=== PATIENT | female | born 1960 ===

== ENCOUNTER 2017-02-21 11:01 | Emergency (ER) | payer MEDICAID, OTHER ==
[2017-02-21 11:05] VITALS: BP 125/77; PULSE 66; RESP 18; TEMP 98.4
[2017-02-21 11:12] VITALS: O2SAT 98
--- NOTE | 2017-02-21 11:29 | ED PDOC ---
Upper Extremity Pain/Injury Time Seen by Provider: 02/21/17 11:17 Chief Complaint (Nursing): Upper Extremity Problem/Injury Chief Complaint (Provider): Right wrist fracture - Pain History Per: Patient History/Exam Limitations: no limitations Onset/Duration Of Symptoms: Days Current Symptoms Are (Timing): Still Present Quality: Dull Severity: Moderate Pain Scale Rating Of: 6 Additional Complaint(s): Pt states she was splinted and told the splint is only for 1 week. Pt states she has orthopedic appointment on the and was concerned that was too long for the splint. Orthopedics aware of fracture. PT also states that percocet does not seem to help the pain much. No numbness/tingling. Pt states the pain is overall improved. Pt also asks about the the ankle of her wrist is splint which is appropriate. Past Medical History Reviewed: Historical Data, Nursing Documentation, Vital Signs Vital Signs: Last Vital Signs Temp 98.4 F 02/21/17 11:05 Pulse 66 02/21/17 11:05 Resp 18 02/21/17 11:05 BP 125/77 02/21/17 11:05 Pulse Ox 98 02/21/17 11:10 - Medical History PMH: Fractures, Hypothyroidism - Surgical History Surgical History: No Surg Hx - Family History Family History: States: Unknown Family Hx - Living Arrangements Living Arrangements: With Family - Social History Current smoker - smoking cessation education provided: No Alcohol: None Drugs: Denies - Immunization History Hx Influenza Vaccination: No Hx Pneumococcal Vaccination: No - Home Medications Home Medications: Ambulatory Orders Medication Instructions Recorded Levothyroxine [Synthroid] 100 mcg PO DAILY 07/01/15 metFORMIN [glucOPHAGE] 850 mg PO DAILY 02/18/17 Ibuprofen [Motrin] 600 mg PO Q6H #30 tab 02/19/17 oxyCODONE/Acetaminophen [Percocet 1 tab PO QID PRN #10 tab 02/19/17 5/325 mg Tab] Naproxen [Naprosyn] 500 mg PO BID #30 tablet 02/21/17 - Allergies Allergies/Adverse Reactions: Allergies Allergy/AdvReac Type Severity Reaction Status Date / Time No Known Allergies Allergy Verified 02/21/17 11:10 Review of Systems ROS Statement: Except As Marked, All Systems Reviewed And Found Negative Constitutional: Negative for: Fever, Chills Musculoskeletal: Positive for: Other Neurological: Negative for: Weakness, Numbness Physical Exam - Reviewed Nursing Documentation Reviewed: Yes Vital Signs Reviewed: Yes - Physical Exam Appears: Positive for: Well, Non-toxic, No Acute Distress Head Exam: Positive for: ATRAUMATIC, NORMAL INSPECTION, NORMOCEPHALIC Skin: Positive for: Warm. Negative for: Normal Color (Some ecchymosis of the 4/ 5 digits, sensation of finger intact) Eye Exam: Positive for: Normal appearance ENT: Positive for: Normal ENT Inspection Neck: Positive for: Normal, Painless ROM Respiratory: Negative for: Accessory Muscle Use, Respiratory Distress Back: Positive for: Normal Inspection Extremity: Positive for: Normal ROM Neurologic/Psych: Positive for: Alert, Oriented - ECG O2 Sat by Pulse Oximetry: 98 Pulse Ox Interpretation: Normal Disposition - Clinical Impression Clinical Impression: Wrist fracture, right - Patient ED Disposition Is Patient to be Admitted: No Counseled Patient/Family Regarding: Diagnosis, Need For Followup, Rx Given - Disposition Referrals: Brigid Julien MD [Staff Provider] - Disposition: Routine/Home Disposition Time: 11:33 Condition: GOOD Prescriptions: Naproxen [Naprosyn] 500 mg PO BID #30 tablet Instructions: Wrist Fracture in Adults (ED)
== END 2017-02-21 11:45 | disposition home or self-care (01) ==
LOC: H.ER 11:01
DX: Z47.89 Encounter for other orthopedic aftercare (principal)

== ENCOUNTER 2017-02-26 10:51 | Emergency (ER) | payer MEDICAID ==
[2017-02-26 11:19] VITALS: BP 127/72; PULSE 70; RESP 16; TEMP 97; O2SAT 98
--- NOTE | 2017-02-26 12:18 | ED PDOC ---
Lower Extremity Pain/Injury Time Seen by Provider: 02/26/17 11:27 Chief Complaint (Nursing): Lower Extremity Problem/Injury Chief Complaint (Provider): Left knee pain History Per: Patient History/Exam Limitations: no limitations Onset/Duration Of Symptoms: Other (1 week) Additional Complaint(s): Patient is a 56 y/o female with no significant past medical history presenting to the emergency department for left knee pain x 1 week. States that a week ago , she fell and injured her right arm and left knee. For this complaint, she visited [facility] at the time of injury, reporting that they performed an x-ray of her forearm, which revealed a fracture. A splint was placed and a referral for an orthopedist was given. However, no radiological studies were done on her left knee despite the injury. Denies other injuries or other complaints. PCP: none provided. Past Medical History Reviewed: Historical Data, Nursing Documentation, Vital Signs Vital Signs: Last Vital Signs Temp 97 F L 02/26/17 11:15 Pulse 70 02/26/17 11:15 Resp 16 02/26/17 11:15 BP 127/72 02/26/17 11:15 Pulse Ox 98 02/26/17 11:15 - Medical History PMH: Fractures, Hypothyroidism - Family History Family History: States: Unknown Family Hx - Immunization History Hx Influenza Vaccination: No Hx Pneumococcal Vaccination: No - Home Medications Home Medications: Ambulatory Orders Medication Instructions Recorded Levothyroxine [Synthroid] 100 mcg PO DAILY 07/01/15 metFORMIN [glucOPHAGE] 850 mg PO DAILY 02/18/17 Ibuprofen [Motrin] 600 mg PO Q6H #30 tab 02/19/17 oxyCODONE/Acetaminophen [Percocet 1 tab PO QID PRN #10 tab 02/19/17 5/325 mg Tab] Naproxen [Naprosyn] 500 mg PO BID #30 tablet 02/21/17 - Allergies Allergies/Adverse Reactions: Allergies Allergy/AdvReac Type Severity Reaction Status Date / Time No Known Allergies Allergy Verified 02/26/17 11:15 Review of Systems ROS Statement: Except As Marked, All Systems Reviewed And Found Negative Musculoskeletal: Positive for: Other (Left knee pain) Physical Exam - Reviewed Nursing Documentation Reviewed: Yes Vital Signs Reviewed: Yes - Physical Exam Appears: Positive for: Well, Non-toxic, No Acute Distress Head Exam: Positive for: ATRAUMATIC, NORMAL INSPECTION, NORMOCEPHALIC Skin: Positive for: Normal Color, Warm, Dry Eye Exam: Positive for: Normal appearance Neck: Positive for: Normal Cardiovascular/Chest: Positive for: Regular Rate, Rhythm Respiratory: Negative for: Accessory Muscle Use, Respiratory Distress Extremity: Positive for: Normal ROM (painful), Swelling (mild, left knee with bruising on anterior aspect), Other (Rubia test is negative) Neurologic/Psych: Positive for: Alert, Oriented (x3) - ECG O2 Sat by Pulse Oximetry: 98 (RA) Pulse Ox Interpretation: Normal Medical Decision Making Medical Decision Making: Time: 12:00 Initial impression: Knee sprain. Rule out knee fracture. Initial plan: Left Knee X-ray Reevaluation 13:53 Left knee x-ray reviewed. Findings noted as follows: BONES: Normal. No fracture. JOINTS: Normal. No osteoarthritis. JOINT EFFUSION: None. OTHER FINDINGS: None. IMPRESSION: No acute findings related to/accounting for the clinical presentation. Scribe Attestation: Documented by Lorena Davis, acting as a scribe for Lucy Pelaez MD. Provider Scribe Attestation: All medical record entries made by the Scribe were at my direction and personally dictated by me. I have reviewed the chart and agree that the record accurately reflects my personal performance of the history, physical exam, medical decision making, and the department course for this patient. I have also personally directed, reviewed, and agree with the discharge instructions and disposition. Disposition - Clinical Impression Clinical Impression: Knee pain, Knee injury - Patient ED Disposition Is Patient to be Admitted: No Doctor Will See Patient In The: Office Counseled Patient/Family Regarding: Studies Performed, Diagnosis, Need For Followup - Disposition Referrals: Zach Oglesby III, MD [Staff Provider] - Disposition: Routine/Home Disposition Time: 14:00 Condition: GOOD Additional Instructions: Take naproxen for pain. Follow up with your PCP in 3 days. Instructions: Knee Sprain (ED) Print Language: GREENLANDIC
--- NOTE | 2017-02-26 13:54 | RAD ---
PROCEDURE: Left Knee Radiographs. HISTORY: Pain. No history of recent/ related trauma provided COMPARISON: None. FINDINGS: BONES: Normal. No fracture. JOINTS: Normal. No osteoarthritis. JOINT EFFUSION: None. OTHER FINDINGS: None. IMPRESSION: No acute findings related to/accounting for the clinical presentation. Please note: No preliminary report/ innterpretation of this examination provided by emergency department personnel.
== END 2017-02-26 14:08 | disposition home or self-care (01) ==
LOC: H.ER 10:51
DX: M25.562 Pain in left knee (principal); E03.9 Hypothyroidism, unspecified; Z79.84 Long term (current) use of oral hypoglycemic drugs

== ENCOUNTER 2017-03-03 12:29 | Emergency (ER) | payer MEDICAID, OTHER ==
[2017-03-03 12:44] VITALS: BP 116/80; PULSE 74; RESP 16; TEMP 98; O2SAT 100
--- NOTE | 2017-03-03 13:23 | ED PDOC ---
HPI: Skin/Bite Injury Time Seen by Provider: 03/03/17 12:47 Chief Complaint (Nursing): Abnormal Skin Integrity Chief Complaint (Provider): cast discomfort History Per: Patient History/Exam Limitations: no limitations Additional Complaint(s): Yoanna Guillen is a 56 year old female that presents to the ED with a chief complaint of a cast discomfort to her right arm. Patient was seen at [facility] ED on 02/18/17 for right wrist fracture and sugar tong splint was applied at that time. Since then, she reports she has developed itchiness and irritation to interdigital spaces of her right hand. Patient denies any pain to the area, fever, or chills. She states overall wrist pain is better and controlled with pain meds. Of Note: Patient states she has a follow up appointment with her orthopedist on 03/08/17. Past Medical History Reviewed: Historical Data, Nursing Documentation, Vital Signs Vital Signs: Last Vital Signs Temp 98.0 F 03/03/17 12:40 Pulse 74 03/03/17 12:40 Resp 16 03/03/17 12:40 BP 116/80 03/03/17 12:40 Pulse Ox 100 03/03/17 13:38 - Medical History PMH: Diabetes (type II), Fractures (right wrist), Hypothyroidism - Surgical History Surgical History: No Surg Hx - Family History Family History: States: No Known Family Hx - Living Arrangements Living Arrangements: With Family - Social History Current smoker - smoking cessation education provided: No Alcohol: None Drugs: Denies - Home Medications Home Medications: Ambulatory Orders Medication Instructions Recorded Levothyroxine [Synthroid] 100 mcg PO DAILY 07/01/15 metFORMIN [glucOPHAGE] 850 mg PO DAILY 02/18/17 Ibuprofen [Motrin] 600 mg PO Q6H #30 tab 02/19/17 oxyCODONE/Acetaminophen [Percocet 1 tab PO QID PRN #10 tab 02/19/17 5/325 mg Tab] Naproxen [Naprosyn] 500 mg PO BID #30 tablet 02/21/17 - Allergies Allergies/Adverse Reactions: Allergies Allergy/AdvReac Type Severity Reaction Status Date / Time No Known Allergies Allergy Verified 03/03/17 12:40 Review of Systems ROS Statement: Except As Marked, All Systems Reviewed And Found Negative Constitutional: Negative for: Fever, Chills Musculoskeletal: Positive for: Other (cast discomfort right arm) Skin: Positive for: Rash (present to right hand) Physical Exam - Reviewed Nursing Documentation Reviewed: Yes Vital Signs Reviewed: Yes - Physical Exam Appears: Positive for: Well, Non-toxic, No Acute Distress Head Exam: Positive for: ATRAUMATIC, NORMOCEPHALIC Skin: Positive for: Normal Color, Warm Eye Exam: Positive for: Normal appearance Extremity: Positive for: Other (sugar tong splint in place to right forearm, normal cap refill, Slight skin breakdown noted to interdigital spaces of right hand. No acute infection.) Neurologic/Psych: Positive for: Alert, Oriented. Negative for: Motor/Sensory Deficits - ECG O2 Sat by Pulse Oximetry: 100 (RA) Pulse Ox Interpretation: Normal Medical Decision Making Medical Decision Making: Impression: Cast discomfort Plan: Splint was replaced with new volar splint with digits exposed more to allow for skin of hand to heal. Patient states new splint feels better. She was advised to apply OTC cortisone cream to hand as needed for itching. Patient was instructed to follow up with ortho as scheduled on 03/08/17. Scribe Attestation: Documented by Linda Dash, acting as a scribe for Parisa Woo PA-C. Provider Scribe Attestation: All medical record entries made by the Scribe were at my direction and personally dictated by me. I have reviewed the chart and agree that the record accurately reflects my personal performance of the history, physical exam, medical decision making, and the department course for this patient. I have also personally directed, reviewed, and agree with the discharge instructions and disposition. Disposition - Clinical Impression Clinical Impression: Cast discomfort - Patient ED Disposition Is Patient to be Admitted: No Counseled Patient/Family Regarding: Diagnosis, Need For Followup - Disposition Referrals: [facility] [Outside] Disposition: Routine/Home Disposition Time: 13:42 Condition: STABLE Additional Instructions: Keep splint on at all times, do not get splint wet. Follow up as directed next week. Instructions: Cast Care (ED) Forms: [facility] (Bulgarian)
== END 2017-03-03 13:54 | disposition home or self-care (01) ==
LOC: H.ER 12:29
DX: Z47.89 Encounter for other orthopedic aftercare (principal)

== ENCOUNTER 2017-03-29 21:48 | Emergency (ER) | payer MEDICAID, OTHER ==
[2017-03-29 22:00] VITALS: BP 116/81; PULSE 86; RESP 17; TEMP 97.9; O2SAT 97
--- NOTE | 2017-03-29 23:31 | US ---
EXAM: US Pelvis, Transvaginal CLINICAL HISTORY: 56 years old, female; Signs and symptoms; Other: Spotting; Additional info: Vb, post-menopause TECHNIQUE: Real-time transvaginal pelvic ultrasound (complete) with image documentation. Transvaginal imaging was used for better evaluation of the endometrium and adnexa. COMPARISON: No relevant prior studies available. FINDINGS: Uterus/cervix: Unremarkable in size measuring 5.4 x 2.6 x 2.8 cm. Multiple fibroids are detected. The largest within the anterior fundus measuring 28 mm in greatest dimension, to the right of midline. A second smaller fibroid is detected along the anterior body of the uterus measuring 16 mm in greatest dimension. Normal endometrial stripe thickness, measuring 3 mm. Despite prolonged interrogation, neither ovary was visualized, secondary to overlying bowel gas. Free fluid: No free fluid. IMPRESSION: Fibroid uterus. Despite prolonged interrogation, neither ovary was visualized, secondary to overlying bowel gas.
[2017-03-29 23:47] LABS: BASO # 0.1 K/uL (0.0-0.2); BASO % 0.9 % (0.0-2.0); EOS # 0.2 K/uL (0.0-0.7); EOS % 1.3 % (0.0-4.0); HEMATOCRIT 38.6 % (34.0-47.0); LYMPH # 1.8 K/uL (1.0-4.3); LYMPH % 12.8 % (20.0-40.0); MEAN CORPUSCULAR HGB CONC 33.4 g/dL (33.0-37.0); MEAN PLATELET VOLUME 7.6 fl (7.2-11.7); NEUT # 10.7 K/uL (1.8-7.0); RED CELL DISTRIBUTION WIDTH 13.8 % (11.5-14.5); WHITE BLOOD COUNT 13.8 K/uL (4.8-10.8)
[2017-03-29 23:53] LABS: RBC URINE 232 /hpf (0-3); URINE BACTERIA RARE (<OCC); URINE BILIRUBIN NEGATIVE (NEGATIVE); URINE BLOOD LARGE (NEGATIVE); URINE COLOR YELLOW (YELLOW); URINE GLUCOSE (UA) NEG (Normal); URINE KETONE NEGATIVE (NEGATIVE); URINE LEUKOCYTE ESTERASE LARGE Leu/uL (Negative); URINE PROTEIN 100 mg/dL (NEGATIVE); URINE UROBILINOGEN 0.2-1.0 mg/dL (0.2-1.0); WBC URINE 202 /hpf (0-5)
[2017-03-29 23:56] LABS: BLOOD UREA NITROGEN 11 mg/dl (7-17); CALCIUM 9.6 mg/dL (8.4-10.2); CARBON DIOXIDE 24 mmol/L (22-30); CHLORIDE 103 mmol/L (98-107); GFR AFRICAN-AMERICAN > 60; GLUCOSE,RANDOM 119 mg/dL (65-105); SODIUM 137 mmol/l (132-148)
--- NOTE | 2017-03-30 00:16 | ED PDOC ---
HPI: Female Pain Time Seen by Provider: 03/29/17 22:01 Chief Complaint (Nursing): Abdominal Pain Chief Complaint (Provider): Left Lower Rib Pain, Vaginal Spotting, Headache History Per: Patient History/Exam Limitations: no limitations Onset/Duration Of Symptoms: Days (x 1) Current Symptoms Are (Timing): Still Present Additional Complaint(s): Yoanna is a 56 y/o female who presents to the ED c/o left lower rib pain, vaginal spotting, and headache which all started today. When asked if the bleeding is vaginal or urinary she said shes unsure. Patient describes the headache as gradual onset, squeezing, non-thunderclap, and not worst of her life. She admits to pain when urinating but denies abdominal pain, chest pain, and shortness of breath. PMD: None Provided Past Medical History Reviewed: Historical Data, Nursing Documentation, Vital Signs Vital Signs: Last Vital Signs Temp 97.9 F 03/29/17 21:56 Pulse 86 03/29/17 21:56 Resp 17 03/29/17 21:56 BP 116/81 03/29/17 21:56 Pulse Ox 97 03/29/17 21:56 - Medical History PMH: Diabetes (type II), Fractures (right wrist), Hypothyroidism Denies: Hepatitis, HIV, HTN, Seizures, Sexually Transmitted Disease - Family History Family History: States: Unknown Family Hx - Immunization History Hx Influenza Vaccination: No Hx Pneumococcal Vaccination: No - Home Medications Home Medications: Ambulatory Orders Medication Instructions Recorded Levothyroxine [Synthroid] 100 mcg PO DAILY 07/01/15 metFORMIN [glucOPHAGE] 850 mg PO DAILY 02/18/17 Ibuprofen [Motrin] 600 mg PO Q6H #30 tab 02/19/17 oxyCODONE/Acetaminophen [Percocet 1 tab PO QID PRN #10 tab 02/19/17 5/325 mg Tab] Naproxen [Naprosyn] 500 mg PO BID #30 tablet 02/21/17 Nitrofurantoin Macrocrystals 100 mg PO BID 5 Days cap 03/30/17 [Macrobid] - Allergies Allergies/Adverse Reactions: Allergies Allergy/AdvReac Type Severity Reaction Status Date / Time No Known Allergies Allergy Verified 03/23/17 09:36 Review of Systems ROS Statement: Except As Marked, All Systems Reviewed And Found Negative Cardiovascular: Negative for: Chest Pain Respiratory: Negative for: Shortness of Breath Gastrointestinal: Negative for: Abdominal Pain Genitourinary Female: Positive for: Dysuria, Vaginal Bleeding Musculoskeletal: Positive for: Other (left lower rib pain) Neurological: Positive for: Headache Physical Exam - Reviewed Nursing Documentation Reviewed: Yes Vital Signs Reviewed: Yes - Physical Exam Appears: Positive for: Non-toxic, No Acute Distress Head Exam: Positive for: ATRAUMATIC, NORMAL INSPECTION, NORMOCEPHALIC Skin: Positive for: Normal Color, Warm, Dry Eye Exam: Positive for: Normal appearance, EOMI, PERRL. Negative for: Nystagmus ENT: Positive for: Normal ENT Inspection Neck: Positive for: Normal, Painless ROM, Supple Cardiovascular/Chest: Positive for: Regular Rate, Rhythm. Negative for: Murmur Respiratory: Positive for: Normal Breath Sounds. Negative for: Respiratory Distress Gastrointestinal/Abdominal: Positive for: Normal Exam, Bowel Sounds, Soft. Negative for: Tenderness Pelvic Exam: Positive for: External Exam Normal, Speculum Exam Normal Back: Positive for: Normal Inspection, Other (tenderness to left 12th rib with no swelling, step off, deformity, or ecchymosis) Extremity: Positive for: Normal ROM. Negative for: Pedal Edema, Deformity Neurologic/Psych: Positive for: Alert, Oriented. Negative for: Motor/Sensory Deficits - Laboratory Results Result Diagrams: 03/29/17 23:41 03/29/17 23:41 - ECG O2 Sat by Pulse Oximetry: 97 (RA) Pulse Ox Interpretation: Normal Medical Decision Making Medical Decision Making: Time: 22:30 Initial Impression: UTI, headache Initial Plan: --BMP --CBC --Chest XR --Toradol --Reglan --Urinalysis --US Transvaginal Time: 23:31 US Transvaginal FINDINGS: Uterus/cervix: Unremarkable in size measuring 5.4 x 2.6 x 2.8 cm. Multiple fibroids are detected. The largest within the anterior fundus measuring 28 mm in greatest dimension, to the right of midline. A second smaller fibroid is detected along the anterior body of the uterus measuring 16 mm in greatest dimension. Normal endometrial stripe thickness, measuring 3 mm. Despite prolonged interrogation, neither ovary was visualized, secondary to overlying bowel gas. Free fluid: No free fluid. IMPRESSION: Fibroid uterus. Despite prolonged interrogation, neither ovary was visualized, secondary to overlying bowel gas. 2330 Pt likely did not have VB but more hematuria. UTI present. Informed of fibroids. Will d/c home. PT. has no PMD, [facility] referral given Scribe Attestation: Documented by Guero Griffith, acting as a scribe for Estiven Waterman MD Provider Scribe Attestation: All medical record entries made by the Scribe were at my direction and personally dictated by me. I have reviewed the chart and agree that the record accurately reflects my personal performance of the history, physical exam, medical decision making, and the department course for this patient. I have also personally directed, reviewed, and agree with the discharge instructions and disposition. Disposition - Clinical Impression Clinical Impression: UTI (urinary tract infection) - Disposition Referrals: [facility] [Outside] Disposition: Routine/Home Disposition Time: 23:30 Condition: STABLE Prescriptions: Nitrofurantoin Macrocrystals [Macrobid] 100 mg PO BID 5 Days cap Instructions: Urinary Tract Infection in Women (ED) Forms: [employer] (Dominican) Print Language: CZECH
--- NOTE | 2017-03-30 09:34 | RAD ---
HISTORY: COMPARISON: 11/13/2011. TECHNIQUE: Chest PA and lateral FINDINGS: LINES AND TUBES: None. LUNG AND PLEURA: The lungs are well inflated and clear. HEART AND MEDIASTINUM: The heart is not enlarged. The hilar and mediastinal contours are within normal limits. SKELETAL STRUCTURES: The bony structures are within normal limits for the patient's age. VISUALIZED UPPER ABDOMEN: Normal. OTHER FINDINGS: None. IMPRESSION: No active pulmonary disease.
== END 2017-03-30 00:30 | disposition home or self-care (01) ==
LOC: H.ER 21:48
DX: N39.0 Urinary tract infection, site not specified (principal); D25.9 Leiomyoma of uterus, unspecified; E03.9 Hypothyroidism, unspecified; E11.9 Type 2 diabetes mellitus without complications; Z78.0 Asymptomatic menopausal state; Z79.84 Long term (current) use of oral hypoglycemic drugs
CPT/HCPCS: 71020; 76830; 80048; 81003; 85025; 96374; 96375; 99282; J1885; J2765

== ENCOUNTER 2017-05-04 10:56 | Emergency (ER) | payer SELFPAY ==
[2017-05-04 10:56] VITALS: BMI 32.5
[2017-05-04 11:02] VITALS: BP 120/72; PULSE 79; RESP 18; TEMP 97; O2SAT 98
--- NOTE | 2017-05-04 11:49 | ED PDOC ---
HPI: CCC, URI, Sore Throat Time Seen by Provider: 05/04/17 11:05 Chief Complaint (Nursing): Cough, Cold, Congestion Chief Complaint (Provider): URI History Per: Patient Additional Complaint(s): Pt is a 56 yo female, PMH of DM, presents to ED c/o cough, congestion sorethraot x 5 days. Past Medical History Vital Signs: Last Vital Signs Temp 97.0 F L 05/04/17 11:01 Pulse 79 05/04/17 11:01 Resp 18 05/04/17 11:01 BP 120/72 05/04/17 11:01 Pulse Ox 98 05/04/17 11:49 - Medical History PMH: Diabetes (type II), Fractures (right wrist), Hypothyroidism Denies: Hepatitis, HIV, HTN, Seizures, Sexually Transmitted Disease - Family History Family History: States: Unknown Family Hx - Immunization History Hx Influenza Vaccination: No Hx Pneumococcal Vaccination: No - Home Medications Home Medications: Ambulatory Orders Medication Instructions Recorded Levothyroxine [Synthroid] 100 mcg PO DAILY 07/01/15 metFORMIN [glucOPHAGE] 850 mg PO DAILY 02/18/17 Ibuprofen [Motrin] 600 mg PO Q6H #30 tab 02/19/17 oxyCODONE/Acetaminophen [Percocet 1 tab PO QID PRN #10 tab 02/19/17 5/325 mg Tab] Naproxen [Naprosyn] 500 mg PO BID #30 tablet 02/21/17 Nitrofurantoin Macrocrystals 100 mg PO BID 5 Days cap 03/30/17 [Macrobid] Guaifenesin/Pseudoephedrne HCl 1 tab PO DAILY PRN #30 ter 05/04/17 [Mucinex D 600 mg-60 mg] Promethazine HCl/Codeine 5 ml PO HS #80 ml 05/04/17 [Prometh-Codein 6.25-10 mg/5 ml] - Allergies Allergies/Adverse Reactions: Allergies Allergy/AdvReac Type Severity Reaction Status Date / Time No Known Allergies Allergy Verified 05/04/17 11:24 Review of Systems ROS Statement: Except As Marked, All Systems Reviewed And Found Negative ENT: Positive for: Nose Congestion, Throat Pain Respiratory: Positive for: Cough Physical Exam - Reviewed Nursing Documentation Reviewed: Yes Vital Signs Reviewed: Yes - Physical Exam Appears: Positive for: Well, Non-toxic, No Acute Distress Head Exam: Positive for: ATRAUMATIC, NORMAL INSPECTION, NORMOCEPHALIC Skin: Positive for: Normal Color, Warm, DRY Eye Exam: Positive for: EOMI, Normal appearance, PERRL ENT: Positive for: Normal ENT Inspection. Negative for: Pharyngeal Erythema, Tonsillar Exudate, Tonsillar Swelling Neck: Positive for: Normal, Painless ROM Cardiovascular/Chest: Positive for: Regular Rate, Rhythm Respiratory: Positive for: CNT, Normal Breath Sounds Gastrointestinal/Abdominal: Positive for: Normal Exam, Bowel Sounds, Soft Back: Positive for: Normal Inspection Extremity: Positive for: Normal ROM Neurologic/Psych: Positive for: Alert, Oriented - ECG O2 Sat by Pulse Oximetry: 98 Medical Decision Making Medical Decision Making: CXR: NAD, as read by KATHERINE Supportive care measures discussed Disposition - Clinical Impression Clinical Impression: Upper respiratory infection, Viral syndrome - Patient ED Disposition Is Patient to be Admitted: No - Disposition Disposition: Routine/Home Disposition Time: 13:11 Condition: STABLE Prescriptions: Guaifenesin/Pseudoephedrne HCl [Mucinex D 600 mg-60 mg] 1 tab PO DAILY PRN #30 ter PRN Reason: congestion Promethazine HCl/Codeine [Prometh-Codein 6.25-10 mg/5 ml] 5 ml PO HS #80 ml Instructions: Upper Respiratory Infection (ED), Viral Syndrome (ED) Forms: [facility] (Kiswahili) Print Language: PORTUGUESE
--- NOTE | 2017-05-04 15:23 | RAD ---
HISTORY: fever and cough COMPARISON: 03/29/2017 TECHNIQUE: Chest PA and lateral FINDINGS: LUNGS: No active pulmonary disease. PLEURA: No significant pleural effusion identified. No pneumothorax apparent. CARDIOVASCULAR: Normal. OSSEOUS STRUCTURES: No significant abnormalities. VISUALIZED UPPER ABDOMEN: Normal. OTHER FINDINGS: None. IMPRESSION: No active disease. No significant interval change compared to the prior examination(s).
== END 2017-05-04 12:55 | disposition home or self-care (01) ==
LOC: H.ER 10:56
DX: J06.9 Acute upper respiratory infection, unspecified (principal); B34.9 Viral infection, unspecified; E03.9 Hypothyroidism, unspecified; E11.9 Type 2 diabetes mellitus without complications; Z79.84 Long term (current) use of oral hypoglycemic drugs

== ENCOUNTER 2018-01-15 10:45 | Emergency (ER) | payer SELFPAY ==
[2018-01-15 12:44] LABS: BASO % 0.4 % (0.0-2.0); EOS # 0.2 K/uL (0.0-0.7); EOS % 1.8 % (0.0-4.0); HEMOGLOBIN 13.7 g/dL (12.0-16.0); LYMPH # 1.7 K/uL (1.0-4.3); LYMPH % 20.7 % (20.0-40.0); MEAN CELL VOLUME 82.8 fl (81.0-99.0); MEAN CORPUSCULAR HEMOGLOBIN 28.1 pg (27.0-31.0); MEAN PLATELET VOLUME 8.3 fl (7.2-11.7); MONO # 0.6 K/uL (0.0-0.8); MONO % 7.4 % (0.0-10.0); NEUT # 5.7 K/uL (1.8-7.0); NEUT % 69.7 % (50.0-75.0); NRBC % 0.1 % (0.0-0.0); RBC 4.87 Mil/uL (3.80-5.20); RED CELL DISTRIBUTION WIDTH 13.8 % (11.5-14.5); WHITE BLOOD COUNT 8.2 K/uL (4.8-10.8)
[2018-01-15 12:53] LABS: BLOOD UREA NITROGEN 15 mg/dl (7-17); CALCIUM 9.8 mg/dL (8.4-10.2); GFR NON-AFRICAN AMERICAN > 60
[2018-01-15 14:30] VITALS: BP 125/81; PULSE 71; RESP 18; TEMP 97.5; O2SAT 100
--- NOTE | 2018-01-15 14:41 | ED PDOC ---
HPI: Abdomen Time Seen by Provider: 01/15/18 11:18 Chief Complaint (Nursing): Abdominal Pain Chief Complaint (Provider): Abdominal Pain History Per: Patient History/Exam Limitations: no limitations Onset/Duration Of Symptoms: Days (3) Location Of Pain/Discomfort: Other (Suprapubic pain) Associated Symptoms: Urinary Symptoms Additional Complaint(s): 57 years old female with history of diabetes presents to the ED for evaluation of dysuria and suprapubic pain for 3 days. Associated symptoms include frequency and burning sensation with urinating. Patient complains of lower back pain as well. She also believes she had fever on Sunday. PMD: non provided Past Medical History Reviewed: Historical Data, Nursing Documentation, Vital Signs Vital Signs: Last Vital Signs Temp 97.5 F L 01/15/18 14:29 Pulse 71 01/15/18 14:29 Resp 18 01/15/18 14:29 BP 125/81 01/15/18 14:29 Pulse Ox 100 01/15/18 14:46 - Medical History PMH: Diabetes (type II), Fractures (right wrist), Hypothyroidism Denies: Hepatitis, HIV, HTN, Seizures, Sexually Transmitted Disease - Surgical History Surgical History: - Family History Family History: States: Unknown Family Hx - Social History Current smoker - smoking cessation education provided: No Alcohol: None Drugs: Denies - Immunization History Hx Influenza Vaccination: No Hx Pneumococcal Vaccination: No - Home Medications Home Medications: Ambulatory Orders Medication Instructions Recorded Levothyroxine [Synthroid] 100 mcg PO DAILY 07/01/15 metFORMIN [glucOPHAGE] 850 mg PO DAILY 02/18/17 Ibuprofen [Motrin] 600 mg PO Q6H #30 tab 02/19/17 oxyCODONE/Acetaminophen [Percocet 1 tab PO QID PRN #10 tab 02/19/17 5/325 mg Tab] Naproxen [Naprosyn] 500 mg PO BID #30 tablet 02/21/17 Nitrofurantoin Macrocrystals 100 mg PO BID 5 Days cap 03/30/17 [Macrobid] Guaifenesin/Pseudoephedrne HCl 1 tab PO DAILY PRN #30 ter 05/04/17 [Mucinex D 600 mg-60 mg] Promethazine HCl/Codeine 5 ml PO HS #80 ml 05/04/17 [Prometh-Codein 6.25-10 mg/5 ml] Nitrofurantoin Macrocrystals 100 mg PO BID #14 cap 01/15/18 [Macrobid] - Allergies Allergies/Adverse Reactions: Allergies Allergy/AdvReac Type Severity Reaction Status Date / Time No Known Allergies Allergy Verified 05/04/17 11:24 Review of Systems ROS Statement: Except As Marked, All Systems Reviewed And Found Negative Gastrointestinal: Positive for: Abdominal Pain (Suprapubic pain) Genitourinary Female: Positive for: Dysuria Musculoskeletal: Positive for: Back Pain (lower) Physical Exam - Reviewed Nursing Documentation Reviewed: Yes Vital Signs Reviewed: Yes - Physical Exam Appears: Positive for: Non-toxic, No Acute Distress Head Exam: Positive for: ATRAUMATIC, NORMOCEPHALIC Skin: Positive for: Normal Color, Warm, Dry Eye Exam: Positive for: Normal appearance, EOMI, PERRL ENT: Positive for: Normal ENT Inspection Neck: Positive for: Normal, Supple Cardiovascular/Chest: Positive for: Regular Rate, Rhythm. Negative for: Murmur Respiratory: Positive for: Normal Breath Sounds. Negative for: Respiratory Distress Gastrointestinal/Abdominal: Positive for: Tenderness (Suprapubic area) Back: Positive for: Normal Inspection. Negative for: L CVA Tenderness, R CVA Tenderness Extremity: Positive for: Normal ROM. Negative for: Tenderness Neurologic/Psych: Positive for: Alert, Oriented (x3) - Laboratory Results Result Diagrams: 01/15/18 12:35 01/15/18 12:35 - ECG O2 Sat by Pulse Oximetry: 100 (RA) Pulse Ox Interpretation: Normal Medical Decision Making Medical Decision Making: Time: 1203 Initial Impression: Dysuria and suprapubic pain. Differential includes but not limited to UTI. Initial Plan: --BMP --Urine --Urine dipstick --CBC --Blood Culture --Urine Culture --Pyridium 100 mg PO 1404 Upon provider reevaluation patient is feeling better, is medically stable, and requires no further treatment in the ED at this time. Patient will be discharged home with Rx of Macrobid. ----- Scribe Attestation: Documented by Marine Ellington, acting as a scribe for Lucy Pelaez MD. Provider Scribe Attestation: All medical record entries made by the Scribe were at my direction and personally dictated by me. I have reviewed the chart and agree that the record accurately reflects my personal performance of the history, physical exam, medical decision making, and the department course for this patient. I have also personally directed, reviewed, and agree with the discharge instructions and disposition. Disposition - Clinical Impression Clinical Impression: UTI (urinary tract infection) - Disposition Referrals: [facility] [Outside] Disposition: Routine/Home Disposition Time: 14:04 Condition: GOOD Additional Instructions: Take your medications as instructed. Follow up with your PCP in 2-3 days. Prescriptions: Nitrofurantoin Macrocrystals [Macrobid] 100 mg PO BID #14 cap Instructions: Urinary Tract Infection, Adult (DC) Print Language: FRENCH
== END 2018-01-15 14:32 | disposition home or self-care (01) ==
LOC: H.ER 10:45 → SUPCPDRO 10:45 → H.ER 14:32
DX: N39.0 Urinary tract infection, site not specified (principal); E11.9 Type 2 diabetes mellitus without complications; Z79.84 Long term (current) use of oral hypoglycemic drugs; E03.9 Hypothyroidism, unspecified